=== PATIENT | female | born 1940 | race Caucasian/White ===

== ENCOUNTER 2018-01-19 11:52 | Inpatient (IN) | payer OTHER ==
[~2018-01-19] VITALS: Ht 160 cm; Wt 103.0 kg
[2018-01-19] MEDS ORDERED: HYDROcodone-ACET 5/325MG TAB PO ONE (13:45)
[2018-01-19] MEDS ORDERED: KETOROLAC TROMETH 30 MG/ML 1ML VIAL IM ONE (13:45)
[2018-01-19 14:47] LABS: Basophils # (auto) 0 uL; Basophils % (auto) 0.5 % (0.0-2.0); Eosinophils # (auto) 0.2 uL; Eosinophils % (auto) 2.5 % (0.0-7.0); Hematocrit 36.4 % (36.0-46.0); Hemoglobin 12.1 g/dL (12.2-16.2); Lymphocytes # (auto) 1.2 uL; Lymphocytes % (auto) 13.3 % (10.0-50.0); Mean Corpuscular Hemoglobin 29.1 pg (28.0-32.0); Mean Corpuscular Hgb Conc. 33.3 g/dL (32.0-36.0); Mean Corpuscular Volume 87.4 fL (80.0-100.0); Monocytes # (auto) 0.8 uL; Monocytes % (auto) 8.8 % (0.0-12.0); Neutrophils # (auto) 6.9 uL; Neutrophils % (auto) 74.9 % (37.0-80.0); Nucleated Red Blood Cells % 0.3 %; Platelet Count (auto) 235 10^3/uL (140-450); Red Blood Cells 4.16 10^6/uL (4.0-5.20); White Blood Cell 9.2 10^3/uL (4.4-10.8)
[2018-01-19 15:05] LABS: Partial Thromboplastin Time 26.2 sec (23.78-33.04); Prothrombin Time 10.7 sec (9.27-12.13)
[2018-01-19 15:14] LABS: Alanine Aminotransferase 16 U/L (13-56); Alkaline Phosphatase 116 U/L (45-117); Anion Gap 9 (5-15); Aspartate Aminotransferase 11 U/L (15-37); BUN/Creatinine Ratio 13.8; Bilirubin, Total 1.7 mg/dL (0.2-1.0); Blood Urea Nitrogen 12 mg/dL (7-18); Calcium 9.4 mg/dL (8.5-10.1); Carbon Dioxide 24 mmol/L (21-32); Chloride 104 mmol/L (98-107); GFR African American 81 mL/min; GFR Non-African American 67 mL/min; Glucose 98 mg/dL (74-106); Potassium 3.6 mmol/L (3.5-5.1); Sodium 137 mmol/L (136-145); Total Protein 6.4 g/dL (6.4-8.2)
[2018-01-19] MEDS: SODIUM CHLORIDE 0.9% 1,000 ML IV SCH (15:16)
[2018-01-19] MEDS ORDERED: NITROGLYCERIN 0.4 MG SL TAB SL PRN (15:30)
[2018-01-19] MEDS ORDERED: HEPARIN SODIUM (PORCINE) 5000 UNITS/ML 1ML VIAL IV ONE (15:30)
[2018-01-19] MEDS ORDERED: MORPHINE SULF(PF) 0.5MG/ML 10ML VIAL IV PRN ×2 (15:30→16:15)
[2018-01-19] MEDS ORDERED: ACETAMINOPHEN 325 MG TAB PO PRN (15:30)
[2018-01-19] MEDS ORDERED: MORPHINE SULFATE 8mg/ml INJ SDV IV PRN (15:30)
[2018-01-19] MEDS ORDERED: ONDANSETRON HCL 4 MG/2 ML VIAL IV PRN (15:30)
[2018-01-19] MEDS ORDERED: ALUM & MAG HYDROX-SIMETH LIQ(MAALOX) 30 ML PO PRN (15:30)
[2018-01-19] MEDS ORDERED: MORPHINE SULF INJ 2 MG/ML SYRINGE 1ML IV PRN (16:30)
[2018-01-19 20:39] LABS: Urine Bacteria FEW /hpf (None Seen); Urine Blood Negative /uL (Negative); Urine Specific Gravity 1.005 (1.001-1.035); Urine WBC 2 /hpf (0 - 5)
[2018-01-19 21:00] VITALS: BP 160/71
[2018-01-19 22:00] VITALS: BP 160/71
[2018-01-19] MEDS ORDERED: FURO20TA3 PO (22:29)
[2018-01-19] MEDS ORDERED: VERA1TAB9 PO (22:29)
[2018-01-19] MEDS ORDERED: LEVO125T7 PO (22:29)
[2018-01-19] MEDS ORDERED: POTA10TA34 PO (22:29)
[2018-01-19] MEDS ORDERED: CLON0.1T PO (22:29)
[2018-01-19] MEDS: HYDROcodone-ACET 5/325MG TAB PO PRN (23:52)
[2018-01-20 00:20] VITALS: BP 146/107
[2018-01-20 05:00] VITALS: BP 144/81
[2018-01-20 07:20] LABS: Basophils # (auto) 0 uL; Basophils % (auto) 0.5 % (0.0-2.0); Eosinophils # (auto) 0.3 uL; Eosinophils % (auto) 4.4 % (0.0-7.0); Hematocrit 31.1 % (36.0-46.0); Hemoglobin 10.4 g/dL (12.2-16.2); Lymphocytes % (auto) 15.6 % (10.0-50.0); Mean Corpuscular Hemoglobin 29.2 pg (28.0-32.0); Mean Corpuscular Hgb Conc. 33.3 g/dL (32.0-36.0); Mean Corpuscular Volume 87.7 fL (80.0-100.0); Monocytes # (auto) 0.6 uL; Monocytes % (auto) 9.6 % (0.0-12.0); Neutrophils # (auto) 4.6 uL; Neutrophils % (auto) 69.9 % (37.0-80.0); Platelet Count (auto) 182 10^3/uL (140-450); Red Blood Cells 3.55 10^6/uL (4.0-5.20); Red Cell Distribution Width 14.7 % (11.8-14.3); White Blood Cell 6.6 10^3/uL (4.4-10.8)
[2018-01-20 07:38] LABS: BUN/Creatinine Ratio 17.5; Calcium 9.2 mg/dL (8.5-10.1); Potassium 3.7 mmol/L (3.5-5.1)
[2018-01-20] MEDS: HYDROcodone-ACET 5/325MG TAB PO PRN ×2 (07:40→17:23)
[2018-01-20 08:00] VITALS: BP 149/71
[2018-01-20] MEDS ORDERED: ROCURONIUM 10MG/ML 10ML VIAL IV ONE (08:29)
[2018-01-20] MEDS ORDERED: ONDANSETRON HCL 4 MG/2 ML VIAL ONE (08:29)
[2018-01-20] MEDS ORDERED: MIDAZOLAM HCL 1MG/1ML-2 ML VIAL ONE (08:29)
[2018-01-20] MEDS ORDERED: MEPERIDINE HCL (50 MG/ML) 1 ML VIAL ONE (08:29)
[2018-01-20] MEDS ORDERED: fentaNYL CITRATE 100 MCG/2 ML VL ONE (08:29)
[2018-01-20] MEDS ORDERED: PROPOFOL 10 MG/ML 20 ML IV ONE ×2 (08:29→10:06)
[2018-01-20] MEDS ORDERED: SODIUM CHLORIDE LOCK 10 ML ONE (08:29)
[2018-01-20] MEDS: SODIUM CHLORIDE 0.9% 1,000 ML IV SCH (08:34)
[2018-01-20] MEDS ORDERED: ceFAZolin 1GM/100ML 100 ML IV ONE (11:41)
[2018-01-20] MEDS ORDERED: METOCLOPRAMIDE HCL 5MG/ml INJ 2ml VIAL IV ONE (11:45)
[2018-01-20] MEDS ORDERED: BUPIVACAINE 0.25% INJ 50ML VIAL ONE (11:49)
[2018-01-20] MEDS ORDERED: SUCCINYLCHOLINE CHLORIDE 20 MG/ML 10ML VIAL IV ONE (11:59)
[2018-01-20] MEDS: fentaNYL CITRATE 100 MCG/2 ML VL IV ONE ×2 (15:23→16:29)
[2018-01-20] MEDS ORDERED: KETOROLAC TROMETH 30 MG/ML 1ML VIAL ONE (15:55)
[2018-01-20] MEDS: KETOROLAC TROMETH 30 MG/ML 1ML VIAL IV ONE ×2 (16:04→16:29)
[2018-01-20 16:38] VITALS: BP 148/69
[2018-01-20] MEDS ORDERED: MEPERIDINE HCL (25 MG/ML) 1ML VIAL IM PRN (17:00)
[2018-01-20] MEDS: DOCUSATE SOD 100 MG CAP PO PRN (17:23)
[2018-01-20] MEDS: MEPERIDINE HCL (25 MG/ML) 1ML VIAL IV PRN (18:24)
[2018-01-20 20:00] VITALS: BP 121/67
[2018-01-20] MEDS: VERAPAMIL HCL 40 MG TAB PO SCH (21:37)
[2018-01-20] MEDS: cloNIDine HCL 0.1 MG TAB PO SCH (21:37)
[2018-01-20 22:00] VITALS: BP 121/67
[2018-01-21] MEDS: MEPERIDINE HCL (25 MG/ML) 1ML VIAL IV PRN ×2 (00:22→08:36)
[2018-01-21] MEDS: SODIUM CHLORIDE 0.9% 1,000 ML IV SCH (00:36)
[2018-01-21] MEDS: HYDROcodone-ACET 5/325MG TAB PO PRN ×2 (04:49→09:54)
[2018-01-21 05:00] VITALS: BP 127/58
[2018-01-21] MEDS ORDERED: LEVOTHYROXINE SODIUM 100 MCG TAB PO SCH (07:00)
[2018-01-21 07:12] LABS: Basophils # (auto) 0 uL; Basophils % (auto) 0.5 % (0.0-2.0); Eosinophils # (auto) 0.2 uL; Eosinophils % (auto) 2.8 % (0.0-7.0); Hematocrit 29.8 % (36.0-46.0); Hemoglobin 9.8 g/dL (12.2-16.2); Lymphocytes # (auto) 0.5 uL; Lymphocytes % (auto) 5.9 % (10.0-50.0); Mean Corpuscular Hemoglobin 29.2 pg (28.0-32.0); Mean Corpuscular Hgb Conc. 32.9 g/dL (32.0-36.0); Mean Corpuscular Volume 88.9 fL (80.0-100.0); Monocytes # (auto) 0.7 uL; Monocytes % (auto) 8.8 % (0.0-12.0); Neutrophils # (auto) 6.9 uL; Platelet Count (auto) 190 10^3/uL (140-450); Red Blood Cells 3.35 10^6/uL (4.0-5.20); Red Cell Distribution Width 15.1 % (11.8-14.3); White Blood Cell 8.4 10^3/uL (4.4-10.8)
[2018-01-21 07:34] LABS: BUN/Creatinine Ratio 18.8; Calcium 8.8 mg/dL (8.5-10.1); Potassium 4.4 mmol/L (3.5-5.1)
[2018-01-21 08:42] VITALS: BP 135/65
[2018-01-21] MEDS: VERAPAMIL HCL 40 MG TAB PO SCH (09:16)
[2018-01-21] MEDS: cloNIDine HCL 0.1 MG TAB PO SCH (09:17)
[2018-01-21] MEDS: DOCUSATE SOD 100 MG CAP PO PRN (09:18)
[2018-01-21] MEDS ORDERED: POTASSIUM CHL 10 Meq TABLET PO SCH (10:00)
[2018-01-21] MEDS ORDERED: FUROSEMIDE 20 MG TAB PO SCH (10:00)
[2018-01-21 10:33] VITALS: BP 135/65
[2018-01-21 12:45] VITALS: BP 112/53
[2018-01-21] MEDS ORDERED: MORPHINE SULF 15mg ER tab PO SCH (14:00)
== END 2018-01-21 17:49 | disposition home or self-care (01) | DRG 322 ==
LOC: ER 11:52 → OVERFLOW 11:53 → WEST WING 20:32
PROVIDERS: ADMIT Family Medicine; ATTEND Family Medicine
PROC: 0JBD0ZZ Excision of Right Upper Arm Subcutaneous Tissue and Fascia, Open Approach (ICD-10-PCS; 2018-01-20)
PROC: 0LQ10ZZ Repair Right Shoulder Tendon, Open Approach (ICD-10-PCS; 2018-01-20)
PROC: 0LS30ZZ Reposition Right Upper Arm Tendon, Open Approach (ICD-10-PCS; 2018-01-20)
PROC: 0RRJ0J6 Replacement of Right Shoulder Joint with Synthetic Substitute, Humeral Surface, Open Approach (ICD-10-PCS; principal; 2018-01-20 11:59)
DX: S42.351A Displaced comminuted fracture of shaft of humerus, right arm, initial encounter for closed fracture (principal); E66.01 Morbid (severe) obesity due to excess calories; I10 Essential (primary) hypertension; M75.21 Bicipital tendinitis, right shoulder; E03.9 Hypothyroidism, unspecified; W18.39XA Other fall on same level, initial encounter; Z68.39 Body mass index [BMI] 39.0-39.9, adult; Z90.49 Acquired absence of other specified parts of digestive tract; Y93.89 Activity, other specified; Y92.098 Other place in other non-institutional residence as the place of occurrence of the external cause; Y99.8 Other external cause status
CPT/HCPCS: 36415; 71045; 73020; 73200; 80048; 80053; 81001; 83880; 84484; 85025; 85610; 85730; 86850; 86900; 86901; 93005; 96372; 97163; J0330; J0690; J1885; J2250; J2405; J2704; J3490

== ENCOUNTER 2018-01-22 02:54 | Inpatient (IN) | payer OTHER ==
[2018-01-22] VITALS (10 sets, daily range): BP systolic 120–151; BP diastolic 49–95
[~2018-01-22] VITALS: Ht 160 cm; Wt 102.1 kg
[~2018-01-22 02:54] MED LIST: CLON0.1T PO; FURO20TA3 PO; LEVO125T7 PO; POTA10TA34 PO; VERA1TAB9 PO
[2018-01-22] MEDS ORDERED: MORPHINE SULF(PF) 0.5MG/ML 10ML VIAL IV PRN (04:00)
[2018-01-22] MEDS ORDERED: ONDANSETRON HCL 4 MG/2 ML VIAL IV PRN (04:00)
[2018-01-22] MEDS ORDERED: NITROGLYCERIN 0.4 MG SL TAB SL PRN (04:00)
[2018-01-22] MEDS ORDERED: MORPHINE SULFATE 8mg/ml INJ SDV IV PRN (04:00)
[2018-01-22 06:41] LABS: Basophils # (auto) 0 uL; Basophils % (auto) 0.2 % (0.0-2.0); Eosinophils # (auto) 0 uL; Eosinophils % (auto) 0.3 % (0.0-7.0); Hematocrit 32.1 % (36.0-46.0); Hemoglobin 10.5 g/dL (12.2-16.2); Lymphocytes # (auto) 0.6 uL; Lymphocytes % (auto) 4.3 % (10.0-50.0); Mean Corpuscular Hemoglobin 28.9 pg (28.0-32.0); Mean Corpuscular Hgb Conc. 32.7 g/dL (32.0-36.0); Mean Corpuscular Volume 88.4 fL (80.0-100.0); Monocytes # (auto) 1.2 uL; Monocytes % (auto) 9.4 % (0.0-12.0); Neutrophils % (auto) 85.8 % (37.0-80.0); Platelet Count (auto) 222 10^3/uL (140-450); Red Blood Cells 3.64 10^6/uL (4.0-5.20); White Blood Cell 12.8 10^3/uL (4.4-10.8)
[2018-01-22] MEDS: LEVOTHYROXINE SODIUM 50 MCG TAB PO SCH (06:46)
[2018-01-22 06:49] LABS: INR 1.04 (0.9-1.15); Partial Thromboplastin Time 26.6 sec (23.78-33.04); Prothrombin Time 11.1 sec (9.27-12.13)
[2018-01-22 06:53] LABS: Potassium 4.6 mmol/L (3.5-5.1)
[2018-01-22 07:08] LABS: Albumin 2.6 g/dL (3.4-5.0); BUN/Creatinine Ratio 20.8; Bilirubin, Total 1.1 mg/dL (0.2-1.0); Calcium 9.1 mg/dL (8.5-10.1); Total Protein 5.7 g/dL (6.4-8.2)
[2018-01-22] MEDS ORDERED: cloNIDine HCL 0.1 MG TAB PO SCH (10:00)
[2018-01-22] MEDS ORDERED: FUROSEMIDE 20 MG TAB PO SCH (10:00)
[2018-01-22] MEDS ORDERED: POTASSIUM CHL 10 Meq TABLET PO SCH (10:00)
[2018-01-22] MEDS: VERAPAMIL HCL 40 MG TAB PO SCH ×2 (10:28→21:57)
[2018-01-22] MEDS: DOCUSATE SOD 100 MG CAP PO SCH ×2 (10:29→21:57)
[2018-01-22] MEDS ORDERED: IOHEXOL 350 MG/ML 100ML IJ ONE (15:53)
[2018-01-22] MEDS ORDERED: ENOXAPARIN SOD 100 MG/1 ML SYRINGE SC ONE (21:00)
[2018-01-22 21:24] LABS: Basophils # (auto) 0 uL; Basophils % (auto) 0.3 % (0.0-2.0); Eosinophils # (auto) 0.3 uL; Eosinophils % (auto) 2.6 % (0.0-7.0); Hematocrit 27.6 % (36.0-46.0); Hemoglobin 9.2 g/dL (12.2-16.2); Lymphocytes # (auto) 0.7 uL; Lymphocytes % (auto) 5.2 % (10.0-50.0); Mean Corpuscular Hemoglobin 29.2 pg (28.0-32.0); Mean Corpuscular Hgb Conc. 33.3 g/dL (32.0-36.0); Mean Corpuscular Volume 87.9 fL (80.0-100.0); Monocytes # (auto) 1.2 uL; Monocytes % (auto) 9.6 % (0.0-12.0); Neutrophils # (auto) 10.4 uL; Neutrophils % (auto) 82.3 % (37.0-80.0); Platelet Count (auto) 192 10^3/uL (140-450); Red Blood Cells 3.14 10^6/uL (4.0-5.20); Red Cell Distribution Width 14.9 % (11.8-14.3); White Blood Cell 12.6 10^3/uL (4.4-10.8)
[2018-01-23 05:00] VITALS: BP 150/75
[2018-01-23] MEDS: LEVOTHYROXINE SODIUM 50 MCG TAB PO SCH (06:33)
[2018-01-23 06:54] LABS: Basophils # (auto) 0.1 uL; Basophils % (auto) 0.5 % (0.0-2.0); Eosinophils # (auto) 0.6 uL; Eosinophils % (auto) 5.2 % (0.0-7.0); Hematocrit 28.2 % (36.0-46.0); Hemoglobin 9.6 g/dL (12.2-16.2); Lymphocytes # (auto) 0.9 uL; Lymphocytes % (auto) 8.7 % (10.0-50.0); Mean Corpuscular Hgb Conc. 33.9 g/dL (32.0-36.0); Mean Corpuscular Volume 88.5 fL (80.0-100.0); Monocytes # (auto) 1.2 uL; Monocytes % (auto) 11.1 % (0.0-12.0); Neutrophils # (auto) 8.1 uL; Neutrophils % (auto) 74.5 % (37.0-80.0); Platelet Count (auto) 197 10^3/uL (140-450); Red Blood Cells 3.19 10^6/uL (4.0-5.20); Red Cell Distribution Width 15.3 % (11.8-14.3); White Blood Cell 10.9 10^3/uL (4.4-10.8)
[2018-01-23 07:11] LABS: BUN/Creatinine Ratio 27.8; Calcium 9.8 mg/dL (8.5-10.1); Potassium 5.3 mmol/L (3.5-5.1)
[2018-01-23 08:00] VITALS: BP 156/84
[2018-01-23 09:00] VITALS: BP 156/84
[2018-01-23] MEDS: VERAPAMIL HCL 40 MG TAB PO SCH ×2 (09:49→22:07)
[2018-01-23] MEDS: ENOXAPARIN SOD 100 MG/1 ML SYRINGE SC SCH ×2 (09:49→21:13)
[2018-01-23] MEDS: DOCUSATE SOD 100 MG CAP PO SCH ×2 (09:50→21:13)
[2018-01-23] MEDS: BENAZEPRIL HCL 10 MG TAB PO SCH (09:50)
[2018-01-23] MEDS: SODIUM CHLORIDE 0.9% 1,000 ML IV SCH (11:38)
[2018-01-23] MEDS: POLYETHYLENE GLYCOL 17 GM PWDR PO PRN (11:39)
[2018-01-23 13:00] VITALS: BP 121/76
[2018-01-23 17:00] VITALS: BP 136/77
[2018-01-23 18:33] LABS: BUN/Creatinine Ratio 27.6; Calcium 9.4 mg/dL (8.5-10.1); Potassium 4.5 mmol/L (3.5-5.1)
[2018-01-23 20:00] VITALS: BP 124/90
[2018-01-23] MEDS: HYDROcodone-ACET 5/325MG TAB PO PRN (21:13)
[2018-01-24] MEDS: SODIUM CHLORIDE 0.9% 1,000 ML IV SCH (00:54)
[2018-01-24] MEDS: HYDROcodone-ACET 5/325MG TAB PO PRN ×2 (02:21→08:25)
[2018-01-24 05:00] VITALS: BP 139/78
[2018-01-24] MEDS: LEVOTHYROXINE SODIUM 50 MCG TAB PO SCH (06:04)
[2018-01-24 08:00] VITALS: BP 166/80
[2018-01-24] MEDS ORDERED: Boost Glucose Control 8 Ounces PO SCH (08:00)
[2018-01-24] MEDS ORDERED: APIXABAN 5 MG TAB PO ONE (08:15)
[2018-01-24 08:24] LABS: Basophils # (auto) 0.1 uL; Basophils % (auto) 0.7 % (0.0-2.0); Eosinophils # (auto) 0.6 uL; Eosinophils % (auto) 6.3 % (0.0-7.0); Hematocrit 29.9 % (36.0-46.0); Hemoglobin 9.7 g/dL (12.2-16.2); Lymphocytes # (auto) 1.2 uL; Lymphocytes % (auto) 12.4 % (10.0-50.0); Mean Corpuscular Hgb Conc. 32.5 g/dL (32.0-36.0); Mean Corpuscular Volume 89.1 fL (80.0-100.0); Monocytes # (auto) 1.1 uL; Monocytes % (auto) 10.6 % (0.0-12.0); Platelet Count (auto) 217 10^3/uL (140-450); Red Blood Cells 3.36 10^6/uL (4.0-5.20); Red Cell Distribution Width 15.7 % (11.8-14.3)
[2018-01-24 08:51] LABS: BUN/Creatinine Ratio 36.4; Calcium 9.8 mg/dL (8.5-10.1); Potassium 4.4 mmol/L (3.5-5.1)
[2018-01-24] MEDS: BENAZEPRIL HCL 10 MG TAB PO SCH (10:07)
[2018-01-24] MEDS: VERAPAMIL HCL 40 MG TAB PO SCH (10:08)
[2018-01-24] MEDS: DOCUSATE SOD 100 MG CAP PO SCH (10:08)
[2018-01-24] MEDS: ENOXAPARIN SOD 100 MG/1 ML SYRINGE SC SCH (10:08)
[2018-01-24] MEDS: POLYETHYLENE GLYCOL 17 GM PWDR PO PRN (10:09)
[2018-01-24 10:25] VITALS: BP 166/80
== END 2018-01-24 11:40 | disposition home health service (06) | DRG 175 ==
LOC: TELE-EAST 02:54
PROVIDERS: ADMIT Hospitalist; ATTEND Hospitalist
DX: I26.99 Other pulmonary embolism without acute cor pulmonale (principal); E43 Unspecified severe protein-calorie malnutrition; K59.00 Constipation, unspecified; R31.29 Other microscopic hematuria; D72.825 Bandemia; E03.9 Hypothyroidism, unspecified; I50.9 Heart failure, unspecified; S40.211A Abrasion of right shoulder, initial encounter; W18.39XA Other fall on same level, initial encounter; I11.0 Hypertensive heart disease with heart failure; E66.9 Obesity, unspecified; I95.1 Orthostatic hypotension; Z79.01 Long term (current) use of anticoagulants; Z90.49 Acquired absence of other specified parts of digestive tract; Z79.899 Other long term (current) drug therapy; Y93.89 Activity, other specified; Y92.89 Other specified places as the place of occurrence of the external cause; Z68.39 Body mass index [BMI] 39.0-39.9, adult
CPT/HCPCS: 36415; 71275; 73020; 80048; 80053; 82962; 84484; 85025; 85379; 85610; 85730; 87081; 93005; 93306; 93886; 93971; 97163